=== PATIENT | female | born 1990 | race Caucasian/White ===

== ENCOUNTER 2024-04-17 20:23 | Emergency (ER) | payer OTHER ==
[2024-04-17 21:23] LABS: CORONAVIRUS COVID-19 NAA NEGATIVE (NEGATIVE); INFLUENZA A NAA NEGATIVE (NEGATIVE); INFLUENZA B NAA NEGATIVE (NEGATIVE); RESPIRATORY SYNCYTIAL VIR NAA NEGATIVE (NEGATIVE)
[2024-04-17] MEDS: cefTRIAXone 1 GM, Lidocaine 1% 2.1 ML IM ONE (21:46)
[2024-04-17] MEDS: Ketorolac 30 MG/ML SDV IM ONE (21:46)
== END 2024-04-17 21:53 | disposition home or self-care (01) ==
LOC: VM.ED 20:23
DX: J02.0 Streptococcal pharyngitis (principal); Z88.2 Allergy status to sulfonamides; Z88.8 Allergy status to other drugs, medicaments and biological substances
CPT/HCPCS: 0241U; 87651-QW; 96372; 99283; J0696; J1885; J3490